=== PATIENT | male | born 1975 | race Caucasian/White ===

== ENCOUNTER 2018-11-13 14:34 | Emergency (ER) | payer SELFPAY ==
[~2018-11-13] VITALS: Ht 177.8 cm; Wt 95.2 kg
== END 2018-11-13 16:36 | disposition home or self-care (01) ==
LOC: ED 14:34
DX: T15.01XA Foreign body in cornea, right eye, initial encounter (principal); Z00.8 Encounter for other general examination; Z87.891 Personal history of nicotine dependence; X58.XXXA Exposure to other specified factors, initial encounter
CPT/HCPCS: 90471; 90715; 99283-25